=== PATIENT | male | born 1995 | race African-American/Black ===

== ENCOUNTER 2018-01-27 01:48 | Emergency (ER) | payer OTHER ==
[2018-01-27 02:26] LABS: BASO # 0.1 10^3/uL (0.0-0.2); BASO % 0.8 % (0.0-1.0); EOS % 0.4 % (0.0-3.0); HEMOGLOBIN 12.9 g/dl (13.5-17.5); IMMATURE GRANULOCYTE % 0.5 % (0-3.0); LYMPH # 1.9 10^3/uL (1.5-6.5); LYMPH % 25.4 % (24.0-44.0); MEAN CORPUSCULAR HEMOGLOBIN 30.7 pg (27.0-33.0); MEAN CORPUSCULAR HGB CONC 34.9 g/dl (32.0-36.5); MEAN CORPUSCULAR VOLUME 88.1 fl (80.0-96.0); MONO # 0.5 10^3/uL (0.0-0.8); MONO % 6.5 % (0.0-5.0); NEUTROPHILS % 66.4 % (36.0-66.0); PLATELET COUNT, AUTOMATED 229 10^3/uL (150-450); RED CELL DISTRIBUTION WIDTH 12.8 % (11.5-14.5); WHITE BLOOD COUNT 7.6 10^3/uL (4.0-10.0)
[2018-01-27 02:38] LABS: INR 1.09; PROTHROMBIN TIME 14.2 SECONDS (12.1-14.4)
[2018-01-27 02:39] LABS: PARTIAL THROMBOPLASTIN TIME 25.5 SECONDS (25.4-37.6)
[2018-01-27] MEDS: MORPHINE 10 MG/ML 1ML VIAL (J2270) IV ×2 (02:39→04:46)
[2018-01-27 02:42] LABS: ANION GAP 13 MEQ/L (8-16); BLOOD UREA NITROGEN 12 MG/DL (7-18); CALCIUM LEVEL 8.6 MG/DL (8.5-10.1); CARBON DIOXIDE LEVEL 21 MEQ/L (21-32); CHLORIDE LEVEL 107 MEQ/L (98-107); CREATININE FOR GFR 1.14 MG/DL (0.70-1.30); GLOMERULAR FILTRATION RATE > 60.0 (>60); GLUCOSE, FASTING 143 MG/DL (70-100); POTASSIUM SERUM 3.2 MEQ/L (3.5-5.1); SODIUM LEVEL 141 MEQ/L (136-145)
[2018-01-27] MEDS ORDERED: ISOVUE-370 76% 100ML VIAL (Q9967) As Ordered (02:51)
== END 2018-01-27 05:55 | disposition short-term general hospital (02) ==
LOC: M ED 01:48
DX: S81.801A Unspecified open wound, right lower leg, initial encounter (principal); S82.461A Displaced segmental fracture of shaft of right fibula, initial encounter for closed fracture; Y22.XXXA Handgun discharge, undetermined intent, initial encounter; Y92.89 Other specified places as the place of occurrence of the external cause
CPT/HCPCS: J0690

== ENCOUNTER 2019-08-13 14:47 | Emergency (ER) | payer OTHER ==
[~2019-08-13] VITALS: Ht 188 cm; Wt 99.1 kg
[2019-08-13 14:48] VITALS: BP 141/78
[2019-08-13] MEDS ORDERED: AUGM875T28 PO (15:19)
[2019-08-13] MEDS ORDERED: PRED20TA PO (15:19)
== END 2019-08-13 15:25 | disposition home or self-care (01) ==
LOC: M ED 14:47
DX: J03.00 Acute streptococcal tonsillitis, unspecified (principal)

== ENCOUNTER 2019-11-07 09:35 | Emergency (ER) | payer OTHER ==
[~2019-11-07 09:35] MED LIST: AUGM875T28 PO; PRED20TA PO
== END 2019-11-07 10:50 | disposition left against medical advice (07) ==
LOC: M ED 09:35
DX: S89.91XA Unspecified injury of right lower leg, initial encounter (principal); W22.8XXA Striking against or struck by other objects, initial encounter; Y92.018 Other place in single-family (private) house as the place of occurrence of the external cause; Y93.67 Activity, basketball; F17.210 Nicotine dependence, cigarettes, uncomplicated

== ENCOUNTER 2019-12-10 11:06 | Emergency (ER) | payer OTHER ==
[~2019-12-10] VITALS: Ht 188 cm; Wt 93.9 kg
[2019-12-10 11:39] LABS: BASO # 0.1 10^3/uL (0.0-0.2); BASO % 1.7 % (0.0-1.0); EOS # 0.3 10^3/uL (0.0-0.5); HEMATOCRIT 49.1 % (42.0-52.0); LYMPH # 1.6 10^3/uL (1.5-5.0); LYMPH % 46.6 % (24.0-44.0); MEAN CORPUSCULAR HEMOGLOBIN 31.5 pg (27.0-33.0); MEAN CORPUSCULAR HGB CONC 34.6 g/dl (32.0-36.5); MEAN CORPUSCULAR VOLUME 90.9 fl (80.0-96.0); MONO # 0.3 10^3/uL (0.0-0.8); MONO % 8.8 % (0.0-5.0); NEUTROPHILS # 1.2 10^3/uL (1.5-8.5); NEUTROPHILS % 34.6 % (36.0-66.0); PLATELET COUNT, AUTOMATED 199 10^3/uL (150-450); WHITE BLOOD COUNT 3.5 10^3/uL (4.0-10.0)
[2019-12-10] MEDS ORDERED: ONDANSETRON 4 MG ORAL DISINTEGRATING TAB PO ONE (11:45)
[2019-12-10 12:13] LABS: ALBUMIN 4.2 GM/DL (3.2-5.2); ALT/SGPT 23 U/L (12-78); BILIRUBIN,DIRECT 0.2 MG/DL (0.0-0.2); BILIRUBIN,TOTAL 0.7 MG/DL (0.2-1.0); BLOOD UREA NITROGEN 15 MG/DL (7-18); CALCIUM LEVEL 9.6 MG/DL (8.5-10.1); CARBON DIOXIDE LEVEL 27 MEQ/L (21-32); CHLORIDE LEVEL 108 MEQ/L (98-107); CREATININE FOR GFR 1.17 MG/DL (0.70-1.30); GLOMERULAR FILTRATION RATE > 60.0 (>60); GLUCOSE, FASTING 89 MG/DL (70-100); LIPASE 43 U/L (73-393); POTASSIUM SERUM 4.5 MEQ/L (3.5-5.1); SODIUM LEVEL 140 MEQ/L (136-145); TOTAL PROTEIN 7.8 GM/DL (6.4-8.2)
[2019-12-10] MEDS ORDERED: ONDA4TAB6 PO (12:49)
[2019-12-10 12:52] VITALS: BP 123/73
== END 2019-12-10 12:56 | disposition home or self-care (01) ==
LOC: M ED 11:06
DX: R11.2 Nausea with vomiting, unspecified (principal); D64.9 Anemia, unspecified
CPT/HCPCS: 36415; 80048; 80076; 83690; 85025; 99283; Q0162